=== PATIENT | female | born 2000 | race Two or more races ===

== ENCOUNTER → 2021-02-12 13:54 | Outpatient (CLI) | payer OTHER ==
[~2021-02-12 13:54] MED LIST: MOTRIN800 MG PO
== END | disposition home or self-care (01) ==
LOC: PPH VACUNA 13:54
DX: Z23 Encounter for immunization (principal)

== ENCOUNTER 2021-09-04 09:00 | Outpatient (CLI) | payer OTHER | END 2021-09-04 09:15 | disposition home or self-care (01) | LOC: PPH VACUNA 09:00 | PROVIDERS: ATTEND Emergency Medicine Pediatric Emergency Medicine | DX: Z23 Encounter for immunization (principal) ==

== ENCOUNTER 2023-08-18 07:26 | Outpatient (CLI) | payer OTHER | END 2023-08-18 14:46 | disposition home or self-care (01) | LOC: SONOGRAMA 07:26 | DX: I10 Essential (primary) hypertension (principal); K76.0 Fatty (change of) liver, not elsewhere classified; Z91.018 Allergy to other foods ==